=== PATIENT | male | born 1995 | race Caucasian/White ===

== ENCOUNTER 2024-12-29 02:05 | Emergency (ER) | payer SELFPAY ==
[2024-12-29 02:07] VITALS: BP 126/83; PULSE 89; RESP 18; TEMP 36.2; O2SAT 98; BMI 27.4
[2024-12-29 04:04] VITALS: BP 127/69; PULSE 77; RESP 16; TEMP 36.4; O2SAT 98
== END 2024-12-29 06:51 | disposition left against medical advice (07) ==
PROVIDERS: Emergency Provider Emergency Medicine Emergency Medical Services
DX: R06.2 Wheezing (principal); J45.909 Unspecified asthma, uncomplicated
CPT/HCPCS: 99281; 99283